=== PATIENT | female | born 1945 | race Hispanic/Latino ===

== ENCOUNTER 2022-04-27 05:57 | Observation (INO) | payer OTHER ==
[2022-04-22 13:25] LABS: BASOPHILS % (AUTO) 0.6 % (0.0-5.0); EOSINOPHILS % (AUTO) 5.5 % (0.0-8.0); HEMATOCRIT 34.5 % (36-48); LYMPHOCYTES % (AUTO) 31.1 % (21.0-51.0); MEAN CORPUSCULAR HEMOGLOBIN 28.9 pg (27.0-33.0); MEAN CORPUSCULAR HGB CONC 32.5 g/dL (32.0-36.0); MEAN CORPUSCULAR VOLUME 89.1 fL (79-99); MONOCYTES % (AUTO) 6.8 % (3.0-13.0); NEUTROPHILS % (AUTO) 55.6 % (40.0-77.0); PLATELET COUNT (AUTO) 251 K/uL (130-400); RED BLOOD CELL COUNT(AUTO) 3.87 MIL/uL (4.00-5.50); RED CELL DISTRIBUTION WIDTH 12.8 % (11.0-15.5); WHITE BLOOD COUNT (AUTO) 5.4 K/uL (4.8-10.8)
[2022-04-22 13:35] LABS: INR 0.95 (0.85-1.15); PROTHROMBIN TIME 10.4 SEC (9.6-11.6)
[2022-04-22 13:36] LABS: CREATININE 0.9 mg/dL (0.5-1.5); PARTIAL THROMBOPLASTIN TIME 27.3 SEC (26.3-35.5); POTASSIUM 4.1 mmol/L (3.5-5.1)
[2022-04-26 11:06] VITALS: BP 161/83
[2022-04-27] VITALS (24 sets, daily range): BP systolic 126–179; BP diastolic 53–78
[~2022-04-27] VITALS: Ht 154.9 cm; Wt 73.3 kg
[2022-04-27] MEDS ORDERED: ROPIVICAINE 250MG+KETOROLAC 15MG+EPINEPHRINE 0.3+CLONIDINE 80 IV PRN ×5 (06:00)
[2022-04-27] MEDS: CEFAZOLIN SODIUM 1 GM VIAL IVP SCH ×4 (06:00→23:39)
[2022-04-27] MEDS: LACTATED RINGERS 1000ML 1,000 ML IV SCH ×5 (08:05→12:17)
[2022-04-27] MEDS ORDERED: PROPOFOL 10 MG/ML 20ML VIAL IV ONE (08:07)
[2022-04-27] MEDS ORDERED: LIDOCAINE HCL-MPF 1% 5ML AMP IJ ONE (08:07)
[2022-04-27] MEDS ORDERED: SUCCINYLCHOLINE CHLORIDE 20 MG/ML 10 ML VIAL ONE (08:07)
[2022-04-27] MEDS ORDERED: ROCURONIUM 10MG/1ML SYR 10 MG/ML ML ONE (08:07)
[2022-04-27] MEDS ORDERED: MIDAZOLAM HCL 1 MG/ML 2ML VIAL ONE (08:07)
[2022-04-27] MEDS ORDERED: FENTANYL CITRATE PF 50 MCG/1 ML 2ML VIAL ONE (08:08)
[2022-04-27] MEDS ORDERED: FLUT15.845 NS (08:28)
[2022-04-27] MEDS ORDERED: OMEP20TA20 PO (08:28)
[2022-04-27] MEDS ORDERED: BRIM5DRO4 OU (08:28)
[2022-04-27] MEDS ORDERED: CITA-107 PO (08:28)
[2022-04-27] MEDS ORDERED: BUSP15TA3 PO (08:28)
[2022-04-27] MEDS ORDERED: FENO54TA6 PO (08:28)
[2022-04-27] MEDS ORDERED: LATA2.5D14 OS (08:28)
[2022-04-27] MEDS ORDERED: MONT-39 PO (08:28)
[2022-04-27] MEDS ORDERED: CELE100C97 PO (08:28)
[2022-04-27] MEDS ORDERED: LISI20TA24 PO (08:28)
[2022-04-27] MEDS ORDERED: CEFAZOLIN SODIUM 1 GM VIAL ONE (08:46)
[2022-04-27] MEDS ORDERED: TRANEXAMIC ACID 1000MG/10ML ONE (08:46)
[2022-04-27] MEDS ORDERED: GLYCOPYRROLATE 1 MG/5 ML SYRINGE ONE (09:21)
[2022-04-27] MEDS ORDERED: VERAPAMIL HCL 2.5 MG/ML VIAL ONE (09:50)
[2022-04-27] MEDS ORDERED: NEOSTIGMINE 5MG/5ML SYR IV ONE (10:13)
[2022-04-27] MEDS: BRIMONIDINE TARTRATE 0.2% 5 ML BOTTLE OU SCH ×2 (10:24→21:00)
[2022-04-27] MEDS ORDERED: ONDANSETRON 4MG INJ IVP PRN (10:30)
[2022-04-27] MEDS ORDERED: HYDROCODONE/ACETAMINOPHEN 5/325 MG TAB PO PRN (10:30)
[2022-04-27] MEDS ORDERED: MORPHINE 4 MG SYG IVP PRN (10:30)
[2022-04-27] MEDS: ACETAMINOPHEN 500 MG TABLET PO SCH ×2 (10:30→18:30)
[2022-04-27] MEDS ORDERED: MEPERIDINE-PF 25 MG/ML SYG ONE (11:01)
[2022-04-27] MEDS: TRAMADOL HCL 50 MG TABLET PO SCH ×3 (12:00→23:40)
[2022-04-27] MEDS: 0.9%NACL 1000ML 1,000 ML IV SCH ×4 (12:03→17:14)
[2022-04-27] MEDS: PANTOPRAZOLE 40 MG TAB DR PO SCH (16:09)
[2022-04-27] MEDS: FLUTICASONE PROPIONATE 50MCG/SPRAY 16 GM BOTTLE NS SCH (17:00)
[2022-04-27] MEDS: KETOROLAC 15MG/ML VIAL (15MG/ML) IV PRN (17:18)
[2022-04-27] MEDS ORDERED: HYDRALAZINE 20MG/ML VIAL IV PRN (17:30)
[2022-04-27] MEDS ORDERED: BENZOCAINE/MENTH/CETYLPYRD CL 1 EACH LOZENGE MM PRN (18:00)
[2022-04-27 18:49] LABS: APPEARANCE,URINE CLEAR (CLEAR); BILIRUBIN,URINE NEGATIVE (NEGATIVE); COLOR,URINE YELLOW (YELLOW); GLUCOSE, URINE (UA) NEGATIVE (NEGATIVE); KETONES,URINE NEGATIVE (NEGATIVE); LEUKOCYTE ESTERASE ,URINE NEGATIVE (NEGATIVE); NITRATE,URINE NEGATIVE (NEGATIVE); OCCULT BLOOD,URINE MODERATE (NEGATIVE); PROTEIN,URINE NEGATIVE (NEGATIVE)
[2022-04-27 19:27] LABS: BACTERIA,URINE Rare /HPF (None Seen); SQUAMOUS EPITHELIAL CELL,UR None Seen /HPF (0-2); WBC,URINE 0-1 /HPF (0-1)
[2022-04-27] MEDS: ASPIRIN 81 MG EC TAB PO SCH (20:42)
[2022-04-27] MEDS: BUSPIRONE HCL 5 MG TABLET PO SCH (20:42)
[2022-04-27] MEDS: MONTELUKAST SODIUM 10 MG TAB PO SCH (20:42)
[2022-04-27] MEDS: FAMOTIDINE 20MG TAB PO SCH (20:42)
[2022-04-27] MEDS: HYDROCODONE/ACETAMINOPHEN 10/325 MG TAB PO PRN (20:51)
[2022-04-27] MEDS: CELECOXIB 100 MG CAP PO SCH (21:00)
[2022-04-28 00:01] VITALS: BP 119/57
[2022-04-28] MEDS: ACETAMINOPHEN 500 MG TABLET PO SCH ×3 (03:41→22:01)
[2022-04-28 04:22] VITALS: BP 119/53
[2022-04-28 04:52] LABS: MEAN CORPUSCULAR HEMOGLOBIN 28.4 pg (27.0-33.0); MEAN CORPUSCULAR HGB CONC 32.2 g/dL (32.0-36.0); MEAN CORPUSCULAR VOLUME 88.2 fL (79-99); RED BLOOD CELL COUNT(AUTO) 3.06 MIL/uL (4.00-5.50); RED CELL DISTRIBUTION WIDTH 13.2 % (11.0-15.5)
[2022-04-28 05:17] LABS: ALBUMIN 2.6 g/dL (3.5-5.0); BILIRUBIN,DIRECT 0.1 mg/dL (0.0-0.3); MAGNESIUM 1.5 mg/dL (1.80-2.40); TOTAL PROTEIN, SERUM 5.7 g/dL (6.0-8.3)
[2022-04-28] MEDS: TRAMADOL HCL 50 MG TABLET PO SCH ×3 (05:50→17:24)
[2022-04-28] MEDS: PANTOPRAZOLE 40 MG TAB DR PO SCH ×2 (05:51→17:23)
[2022-04-28 07:49] VITALS: BP 114/57
[2022-04-28] MEDS: CELECOXIB 100 MG CAP PO SCH ×2 (09:00→22:00)
[2022-04-28] MEDS: LISINOPRIL 20 MG TABLET PO SCH (09:00)
[2022-04-28] MEDS: ***HM***(Fenofibrate 54 MG) PO SCH (09:00)
[2022-04-28] MEDS: BUSPIRONE HCL 5 MG TABLET PO SCH ×2 (09:06→20:15)
[2022-04-28] MEDS: ASPIRIN 81 MG EC TAB PO SCH ×2 (09:06→20:13)
[2022-04-28] MEDS: POLYETHYLENE GLYCOL 3350 17 GM POWD.PACK PO SCH (09:07)
[2022-04-28] MEDS: HYDROCODONE/ACETAMINOPHEN 10/325 MG TAB PO PRN (09:07)
[2022-04-28] MEDS: CITALOPRAM 20 MG TABLET PO SCH (09:07)
[2022-04-28] MEDS: BRIMONIDINE TARTRATE 0.2% 5 ML BOTTLE OU SCH ×2 (10:09→20:15)
[2022-04-28] MEDS: LATANOPROST 2.5 ML DROPS OS SCH (10:09)
[2022-04-28] MEDS: FAMOTIDINE 20MG TAB PO SCH ×2 (10:10→20:14)
[2022-04-28 11:26] VITALS: BP 110/56
[2022-04-28 16:01] VITALS: BP 111/64
[2022-04-28] MEDS: FLUTICASONE PROPIONATE 50MCG/SPRAY 16 GM BOTTLE NS SCH (17:00)
[2022-04-28] MEDS ORDERED: POTASSIUM CHLORIDE 20MEQ/100ML 100 ML IV PRN (20:00)
[2022-04-28] MEDS ORDERED: LIDOCAINE HCL-MPF 1% 2ML VIAL IV PRN (20:00)
[2022-04-28] MEDS ORDERED: POTASSIUM CHLORIDE 10% ELIXIR 20 MEQ/15 ML UDCUP PO PRN (20:00)
[2022-04-28] MEDS ORDERED: KCL 20 MEQ ERTAB PO PRN (20:00)
[2022-04-28] MEDS: FERROUS GLUCONATE TABLET PO SCH (20:13)
[2022-04-28] MEDS: MONTELUKAST SODIUM 10 MG TAB PO SCH (20:13)
[2022-04-28] MEDS: MAGNESIUM 2GM PREMIX 50ML 50 ML IV PRN (20:28)
[2022-04-28 20:29] VITALS: BP 132/55
[2022-04-29 01:00] VITALS: BP 135/68
[2022-04-29 04:03] VITALS: BP 140/69
[2022-04-29] MEDS: KETOROLAC 15MG/ML VIAL (15MG/ML) IV PRN (04:11)
[2022-04-29 04:15] LABS: HEMATOCRIT 26.4 % (36-48); MEAN CORPUSCULAR HEMOGLOBIN 28.9 pg (27.0-33.0); MEAN CORPUSCULAR HGB CONC 32.6 g/dL (32.0-36.0); MEAN CORPUSCULAR VOLUME 88.6 fL (79-99); RED BLOOD CELL COUNT(AUTO) 2.98 MIL/uL (4.00-5.50); RED CELL DISTRIBUTION WIDTH 13.3 % (11.0-15.5); WHITE BLOOD COUNT (AUTO) 5.4 K/uL (4.8-10.8)
[2022-04-29 04:30] LABS: MAGNESIUM 1.8 mg/dL (1.80-2.40); POTASSIUM 3.3 mmol/L (3.5-5.1)
[2022-04-29] MEDS: PANTOPRAZOLE 40 MG TAB DR PO SCH ×2 (06:22→16:02)
[2022-04-29] MEDS: ACETAMINOPHEN 500 MG TABLET PO SCH ×3 (06:23→22:00)
[2022-04-29] MEDS: TRAMADOL HCL 50 MG TABLET PO SCH ×4 (06:23→21:47)
[2022-04-29] MEDS: MAGNESIUM 2GM PREMIX 50ML 50 ML IV PRN (06:25)
[2022-04-29 08:13] VITALS: BP 138/67
[2022-04-29] MEDS: ***HM***(Fenofibrate 54 MG) PO SCH (09:00)
[2022-04-29] MEDS: BRIMONIDINE TARTRATE 0.2% 5 ML BOTTLE OU SCH ×2 (09:00→21:00)
[2022-04-29] MEDS: LATANOPROST 2.5 ML DROPS OS SCH (09:00)
[2022-04-29] MEDS: HYDROCODONE/ACETAMINOPHEN 10/325 MG TAB PO PRN (09:08)
[2022-04-29] MEDS: CELECOXIB 100 MG CAP PO SCH ×2 (10:00→21:48)
[2022-04-29] MEDS: BUSPIRONE HCL 5 MG TABLET PO SCH ×2 (10:01→21:48)
[2022-04-29] MEDS: CITALOPRAM 20 MG TABLET PO SCH (10:01)
[2022-04-29] MEDS: FAMOTIDINE 20MG TAB PO SCH ×2 (10:01→21:48)
[2022-04-29] MEDS: FERROUS GLUCONATE TABLET PO SCH ×2 (10:01→21:48)
[2022-04-29] MEDS: ASPIRIN 81 MG EC TAB PO SCH ×2 (10:01→21:47)
[2022-04-29] MEDS: POLYETHYLENE GLYCOL 3350 17 GM POWD.PACK PO SCH (10:01)
[2022-04-29] MEDS: LISINOPRIL 20 MG TABLET PO SCH (10:07)
[2022-04-29 11:38] VITALS: BP 131/82
[2022-04-29 16:43] VITALS: BP 107/52
[2022-04-29] MEDS: FLUTICASONE PROPIONATE 50MCG/SPRAY 16 GM BOTTLE NS SCH (17:00)
[2022-04-29] MEDS: MONTELUKAST SODIUM 10 MG TAB PO SCH (21:48)
[2022-04-30] MEDS ORDERED: BISACODYL 10 MG SUPP.RECT RC PRN (10:30)
== END 2022-04-29 22:35 ==
LOC: DAH 05:57 → DAHIP 05:58 → DAH 05:58 → 4AH 11:33
PROVIDERS: ADMIT Orthopaedic Surgery; ATTEND Orthopaedic Surgery
DX: M17.11 Unilateral primary osteoarthritis, right knee (principal); Z20.822 Contact with and (suspected) exposure to COVID-19; I97.3 Postprocedural hypertension; I16.0 Hypertensive urgency; I12.9 Hypertensive chronic kidney disease with stage 1 through stage 4 chronic kidney disease, or unspecified chronic kidney disease; N18.2 Chronic kidney disease, stage 2 (mild); E78.5 Hyperlipidemia, unspecified; F41.1 Generalized anxiety disorder; R33.9 Retention of urine, unspecified; R53.81 Other malaise; E43 Unspecified severe protein-calorie malnutrition; E83.42 Hypomagnesemia; E66.9 Obesity, unspecified; Z96.651 Presence of right artificial knee joint; Z79.899 Other long term (current) drug therapy
CPT/HCPCS: 0055T; 27447; 36415; 64447; 76942; 80048; 80076; 81001; 83735; 85025; 85027; 85610; 85730; 87426; 87641; 93005; 96365; 96366; 96374; 96375; 96376; 97039; G0378; J0171; J0330; J0690; J0735; J1885; J2175; J2250; J2704; J2710; J2795; J3010; J3475; J3490; J7030; J7120